=== PATIENT | male | born 1970 | race Caucasian/White ===

== ENCOUNTER → 2016-10-16 | Outpatient (REF) | payer OTHER ==
[~2016-10-16] MED LIST: ATOR1TAB21 PO; CHIL1CHW5 PO; OMEP40CA2 PO; XANA0.25 PO
== END | disposition home or self-care (01) ==
LOC: M LAB REF 16:30
PROVIDERS: ATTEND Nurse Practitioner Family
DX: M79.1 Myalgia (principal)

== ENCOUNTER → 2017-05-05 | Outpatient (REF) | payer OTHER ==
[~2017-05-05] MED LIST changes: -CHIL1CHW5 PO; +CHIL81CH2 PO
== END ==
LOC: M LABNEURO 12:54
PROVIDERS: ATTEND Physician Assistant Medical
DX: E55.9 Vitamin D deficiency, unspecified (principal)

== ENCOUNTER → 2018-01-06 | Outpatient (REF) | payer OTHER ==
[2018-01-06 20:49] LABS: TOTAL 25(OH) VITAMIN D 61.9 NG/ML (30.0-100.0)
== END ==
LOC: M LABNEURO 13:51
DX: E55.9 Vitamin D deficiency, unspecified (principal)

== ENCOUNTER → 2018-02-13 | Outpatient (REF) | payer OTHER | LOC: M LAB REF 16:19 | DX: J02.9 Acute pharyngitis, unspecified (principal) ==

== ENCOUNTER 2018-04-27 15:53 | Outpatient (RCR) | payer OTHER | END 2018-05-05 | LOC: M ST 15:53 | DX: R49.0 Dysphonia (principal) | CPT/HCPCS: 92507 ==

== ENCOUNTER 2018-05-06 16:45 | Outpatient (RCR) | payer OTHER | END 2018-06-05 | LOC: M ST 16:45 | DX: R49.0 Dysphonia (principal) | CPT/HCPCS: 92507 ==

== ENCOUNTER → 2018-08-26 | Outpatient (REF) | payer OTHER ==
[2018-08-26 13:39] LABS: TOTAL 25(OH) VITAMIN D 49.4 NG/ML (30.0-100.0)
== END ==
LOC: M LABNEURO 10:41
DX: E55.9 Vitamin D deficiency, unspecified (principal)
CPT/HCPCS: 82306

== ENCOUNTER → 2018-11-02 | Outpatient (REF) | payer OTHER ==
[2018-11-02 12:47] LABS: RHEUMATOID FACTOR QUANT < 10.0 IU/ML (<15.0); URIC ACID 5.2 MG/DL (3.5-7.2)
[2018-11-03 14:55] LABS: ANTINUCLEAR ANTIBODIES DIRECT Negative (Negative)
== END ==
LOC: M LAB REF 11:52
PROVIDERS: ATTEND Nurse Practitioner Family
DX: M79.10 Myalgia, unspecified site (principal)

== ENCOUNTER → 2019-02-24 | Outpatient (CLI) | payer OTHER ==
[~2019-02-24] MED LIST changes: +ASPI-286 PO; -CHIL81CH2 PO
--- NOTE | 2019-02-24 14:44 | REP ---
Chest two views HISTORY: Acute bronchitis Comparison: 07/04/2016 The lungs are clear. The heart is normal in size. The pulmonary vasculature is normal in appearance. The bony structure is intact. IMPRESSION: No acute disease. Electronically Signed by Rm Rider MD 02/24/2019 02:36 P
== END ==
LOC: M WUC 13:53
PROVIDERS: ATTEND Physician Assistant
DX: Z87.09 Personal history of other diseases of the respiratory system (principal)

== ENCOUNTER → 2019-10-26 | Outpatient (REF) | payer OTHER ==
[~2019-10-26] MED LIST changes: -OMEP40CA2 PO; +OMEP40CA97 PO
[2019-10-28 00:07] LABS: Lyme Disease IgG/IgM Antibodie <0.91 ISR (0.00-0.90); Lyme Disease IgM Ab Quantitati <0.80 index (0.00-0.79)
== END ==
LOC: M LAB REF 12:59
PROVIDERS: ATTEND Nurse Practitioner Adult Health
DX: M35.3 Polymyalgia rheumatica (principal); M79.10 Myalgia, unspecified site

== ENCOUNTER → 2020-07-14 | Outpatient (CLI) | payer OTHER | LOC: M WUC 11:36 | PROVIDERS: ATTEND Physician Assistant Medical | DX: E55.9 Vitamin D deficiency, unspecified (principal) ==

== ENCOUNTER → 2020-10-26 | Outpatient (CLI) | payer OTHER ==
--- NOTE | 2020-10-27 08:31 | REP ---
INDICATION: TESTICULAR PAIN RIGHT SIDE LUMP COMPARISON: None. TECHNIQUE: Nuñez scale and color Doppler evaluation using linear and curved array transducer with color Doppler evaluation. FINDINGS: The testicles and epididymi are relatively normal in contour, size, echogenicity, vascularity and overall appearance. Incidental 10 mm right epididymal head cyst noted. There is no evidence for intratesticular mass lesion, infectious/inflammatory process, or torsion. No obvious hydroceles or varicoceles are identified. Right testicle measures 4.4 x 2.3 x 2.8 cm cm. Left testicle measures 4.1 x 2.2 x 2.9 cm cm. IMPRESSION: Palpable mass corresponds to 10 mm epididymal head cyst. Otherwise normal scrotal ultrasound. <Electronically signed by Adrian Tolbert > 10/27/20 [id number]
== END ==
LOC: M RAD 11:15
PROVIDERS: ATTEND Physician Assistant
DX: N50.3 Cyst of epididymis (principal)

== ENCOUNTER 2023-02-19 10:19 | Emergency (ER) | payer OTHER ==
[~2023-02-19 10:19] MED LIST changes: -ASPI-286 PO; +OMEP40CA4 PO; -OMEP40CA97 PO; +SM C81CH2 PO
[2023-02-19 11:48] LABS: BASO % 0.5 % (0.0-1.0); EOS # 0.2 10^3/uL (0.0-0.5); EOS % 1.7 % (0.0-3.0); HEMATOCRIT 49.6 % (42.0-52.0); HEMOGLOBIN 15.9 g/dl (13.5-17.5); LYMPH # 2.7 10^3/uL (1.5-5.0); LYMPH % 31.8 % (24.0-44.0); MEAN CORPUSCULAR HGB CONC 32.1 g/dl (32.0-36.5); MEAN CORPUSCULAR VOLUME 90.5 fl (80.0-96.0); MONO # 0.6 10^3/uL (0.0-0.8); MONO % 6.4 % (2.0-8.0); NEUTROPHILS # 5.1 10^3/uL (1.5-8.5); NEUTROPHILS % 59.4 % (36.0-66.0); PLATELET COUNT, AUTOMATED 259 10^3/uL (150-450); RED BLOOD COUNT 5.48 10^6/uL (4.30-6.10); WHITE BLOOD COUNT 8.6 10^3/uL (4.0-10.0)
[2023-02-19 12:07] LABS: LIPASE 55 U/L (12-53)
[2023-02-19 12:09] LABS: ALBUMIN 4.1 G/DL (3.2-5.2); ALKALINE PHOSPHATASE 59 U/L (46-116); ALT/SGPT 20 U/L (7.0-40); AST/SGOT 15 U/L (<34); BILIRUBIN,DIRECT < 0.1 MG/DL (<0.4); BILIRUBIN,TOTAL 0.3 MG/DL (0.3-1.2); BLOOD UREA NITROGEN 21 MG/DL (9-23); CALCIUM LEVEL 9.4 MG/DL (8.5-10.1); CARBON DIOXIDE LEVEL 29 MMOL/L (20-31); CHLORIDE LEVEL 111 MMOL/L (98-107); CREATININE FOR GFR 1.09 MG/DL (0.70-1.30); GLOMERULAR FILTRATION RATE > 60.0 (>56); GLUCOSE, FASTING 100 MG/DL (60-100); POTASSIUM SERUM 4.7 MMOL/L (3.5-5.1); SODIUM LEVEL 142 MMOL/L (136-145); TOTAL PROTEIN 7.2 G/DL (5.7-8.2)
[2023-02-19] MEDS ORDERED: CYCL-707 PO (17:06)
[2023-02-19 17:17] VITALS: BP 148/81
== END 2023-02-19 17:19 | disposition home or self-care (01) ==
LOC: M ED 10:19
DX: R10.32 Left lower quadrant pain (principal); K21.9 Gastro-esophageal reflux disease without esophagitis; F10.10 Alcohol abuse, uncomplicated; Z79.891 Long term (current) use of opiate analgesic

== ENCOUNTER → 2023-02-27 | Outpatient (CLI) | payer OTHER ==
[~2023-02-27] MED LIST changes: +CYCL-707 PO
== END ==
LOC: M WUC 10:50
PROVIDERS: ATTEND Physician Assistant Medical
DX: M54.50 Low back pain, unspecified (principal)

== ENCOUNTER 2024-03-05 06:25 | Emergency (ER) | payer OTHER ==
[~2024-03-05] VITALS: Ht 167.6 cm; Wt 83.8 kg
[2024-03-05 09:27] LABS: BASO # 0.1 10^3/uL (0.0-0.2); BASO % 0.6 % (0.0-1.0); EOS # 0.2 10^3/uL (0.0-0.5); EOS % 1.7 % (0.0-3.0); HEMATOCRIT 49.3 % (42.0-52.0); HEMOGLOBIN 16.1 g/dl (13.5-17.5); LYMPH # 1.4 10^3/uL (1.5-5.0); LYMPH % 16.1 % (24.0-44.0); MEAN CORPUSCULAR HEMOGLOBIN 29.4 pg (27.0-33.0); MEAN CORPUSCULAR HGB CONC 32.7 g/dl (32.0-36.5); MEAN CORPUSCULAR VOLUME 90.1 fl (80.0-96.0); MONO # 0.9 10^3/uL (0.0-0.8); MONO % 10.2 % (2.0-8.0); NEUTROPHILS # 6.2 10^3/uL (1.5-8.5); NEUTROPHILS % 71.1 % (36.0-66.0); PLATELET COUNT, AUTOMATED 188 10^3/uL (150-450); RED BLOOD COUNT 5.47 10^6/uL (4.30-6.10); WHITE BLOOD COUNT 8.7 10^3/uL (4.0-10.0)
[2024-03-05 10:03] LABS: BILIRUBIN,DIRECT 0.1 MG/DL (<0.4); BILIRUBIN,TOTAL 0.6 MG/DL (0.3-1.2); TOTAL PROTEIN 7.3 G/DL (5.7-8.2)
[2024-03-05] MEDS ORDERED: ISOVUE-370 76% 100ML VIAL As Ordered ONE (10:49)
[2024-03-05] MEDS: NS 1,000 ML IV ONE (10:51)
[2024-03-05 12:45] VITALS: BP 133/80; TEMP 97.8; O2SAT 98
== END 2024-03-05 12:55 | disposition home or self-care (01) ==
LOC: M ED 06:25
DX: R19.5 Other fecal abnormalities (principal); M54.50 Low back pain, unspecified; K58.9 Irritable bowel syndrome, unspecified; Z90.89 Acquired absence of other organs
CPT/HCPCS: 36415; 74177; 80047; 80076; 83690; 85025; 99284; Q9967

== ENCOUNTER → 2024-03-15 | Outpatient (CLI) | payer OTHER | LOC: M WUC 12:32 | PROVIDERS: ATTEND Nurse Practitioner Adult Health | DX: R10.9 Unspecified abdominal pain (principal) ==

== ENCOUNTER → 2024-06-28 | Outpatient (CLI) | payer OTHER ==
[~2024-06-28] MED LIST changes: +E-Z-GAS II EFFERVESCENT PACKET (SODIUM BICARB./CITRIC ACID/SIMETHICONE) As Ordered ONE; +E-Z-HD 98% w/w 340GM SUSP BTL As Ordered ONE; +E-Z-PAQUE 96% w/w SUSP 176GM BTL As Ordered ONE
== END ==
LOC: M RAD 08:59
PROVIDERS: ATTEND Nurse Practitioner Adult Health
DX: R10.9 Unspecified abdominal pain (principal); K44.9 Diaphragmatic hernia without obstruction or gangrene; K21.9 Gastro-esophageal reflux disease without esophagitis

== ENCOUNTER → 2024-11-29 | Outpatient (CLI) | payer OTHER ==
[~2024-11-29] MED LIST changes: -E-Z-GAS II EFFERVESCENT PACKET (SODIUM BICARB./CITRIC ACID/SIMETHICONE) As Ordered ONE; -E-Z-HD 98% w/w 340GM SUSP BTL As Ordered ONE; -E-Z-PAQUE 96% w/w SUSP 176GM BTL As Ordered ONE
== END ==
LOC: M WUC 12:41
PROVIDERS: ATTEND Nurse Practitioner Family
DX: R05.9 Cough, unspecified (principal)

== ENCOUNTER → 2025-01-24 | Outpatient (REF) | payer OTHER ==
[2025-01-24 14:57] LABS: LIPASE 36 U/L (12-53)
[2025-01-24 14:58] LABS: AMYLASE 66 U/L (30-118)
== END ==
LOC: M LAB REF 11:52
PROVIDERS: ATTEND Nurse Practitioner Adult Health
DX: R05.3 Chronic cough (principal); R10.9 Unspecified abdominal pain

== ENCOUNTER → 2025-01-24 | Outpatient (CLI) | payer OTHER | LOC: M WUC 09:33 | PROVIDERS: ATTEND Nurse Practitioner Adult Health | DX: R05.3 Chronic cough (principal) ==

== ENCOUNTER → 2025-01-25 | Outpatient (REF) | payer OTHER | LOC: M LAB REF 09:47 | PROVIDERS: ATTEND Nurse Practitioner Adult Health | DX: R05.3 Chronic cough (principal) ==

== ENCOUNTER → 2025-02-02 | Outpatient (CLI) | payer OTHER | LOC: M RAD 06:45 | PROVIDERS: ATTEND Nurse Practitioner Adult Health | DX: R10.9 Unspecified abdominal pain (principal); K76.0 Fatty (change of) liver, not elsewhere classified ==

== ENCOUNTER → 2025-07-07 | Outpatient (CLI) | payer OTHER ==
[2025-07-07 14:47] LABS: HIV 1&2 SCREEN NEGATIVE (NEGATIVE)
[2025-07-07 15:40] LABS: Trichomonas vaginalis (AMP) NOT DETECTED (NEGATIVE)
[2025-07-07 16:04] LABS: GC DNA AMPLIFICATION NEGATIVE (NEGATIVE)
[2025-07-11 13:47] LABS: HSV 1 IGG TYPE SPECIFIC < 0.90 index (<0.90); HSV 2 IGG TYPE SPECIFIC < 0.90 index (<0.90)
== END ==
LOC: M WUC 11:52
PROVIDERS: ATTEND Student in an Organized Health Care Education/Training Program
DX: N50.811 Right testicular pain (principal)

== ENCOUNTER → 2025-07-11 | Outpatient (CLI) | payer OTHER | LOC: M RAD 15:18 | PROVIDERS: ATTEND Student in an Organized Health Care Education/Training Program | DX: N50.3 Cyst of epididymis (principal); N50.811 Right testicular pain ==

== ENCOUNTER → 2025-07-13 | Outpatient (REF) | payer OTHER | LOC: M LAB REF 15:34 | PROVIDERS: ATTEND Surgery | DX: D03.4 Melanoma in situ of scalp and neck (principal) ==

== ENCOUNTER → 2025-08-24 | Outpatient (REF) | payer OTHER ==
[2025-08-24 13:43] LABS: AMORPHOUS SEDIMENT SMALL (NEGATIVE); APPEARANCE, URINE TURBID (CLEAR); BACTERIA, URINE AUTO NEGATIVE (NEGATIVE); BILIRUBIN, URINE AUTO NEGATIVE (NEGATIVE); BLOOD, URINE BLOOD NEGATIVE (NEGATIVE); GLUCOSE, URINE (UA) AUTO NEGATIVE (NEGATIVE); KETONE, URINE AUTO NEGATIVE (NEGATIVE); LEUKOCYTE ESTERASE, URINE AUTO NEGATIVE (NEGATIVE); MUCUS, URINE SMALL (NEGATIVE); NITRITE, URINE AUTO NEGATIVE (NEGATIVE); PROTEIN, URINE AUTO NEGATIVE (NEGATIVE); RBC, URINE AUTO 0 /HPF (0-3); SPECIFIC GRAVITY URINE AUTO 1.025 (1.002-1.035); SQUAMOUS EPITHELIAL CELL UR AU 0 /HPF (0-6); UROBILINOGEN, URINE AUTO 0.2 mg/dL (0.0-2.0); WBC, URINE AUTO 1 /HPF (0-3)
== END ==
LOC: M SMT 12:55
PROVIDERS: ATTEND Nurse Practitioner Family
DX: R36.1 Hematospermia (principal)

== ENCOUNTER → 2025-09-06 | Outpatient (CLI) | payer OTHER | LOC: M WUC 11:29 | PROVIDERS: ATTEND Nurse Practitioner Family | DX: R36.1 Hematospermia (principal) ==